=== PATIENT | female | born 1965 | race African-American/Black ===

== ENCOUNTER 2016-12-07 20:19 | Inpatient (IN) | payer MEDICARE, MEDICAID ==
[~2016-12-07] VITALS: Ht 162.6 cm; Wt 58.7 kg
[~2016-12-07 20:19] MED LIST: ALPR-341 PO; AMLO10TA4 PO; ASPI-1159 PO; CARV3.1242 PO; DILT240C92 PO; LEVO50TA8 PO; LORA1TAB PO; LOSA50TA20 PO; PANT40TA4 PO; PHEN100C4 PO; TRAM50TA3 PO
[2016-12-07] MEDS ORDERED: MORPHINE SULFATE 4 MG/ML CPJ (NOT FOR IM USE) IV STA (22:28)
[2016-12-07] MEDS ORDERED: SODIUM CHLORIDE 0.9% 1,000 ML IV ONE (22:28)
[2016-12-07] MEDS ORDERED: ONDANSETRON HCL 4MG/2ML VIAL IV STA (22:28)
[2016-12-07] MEDS ORDERED: HYDRALAZINE 20MG/ML VIAL IV ONE (22:45)
[2016-12-07 22:53] LABS: BASOPHILS % 1.5 % (0.0-2.0); EOSINOPHILS % 2.3 % (0.0-5.0); HEMATOCRIT. 25.3 % (36.0-48.0); HEMOGLOBIN. 8.4 g/dL (12.0-16.0); MEAN CORPUSCULAR HEMOGLOBIN 29.9 pg (28.0-32.0); MEAN CORPUSCULAR VOLUME 90.6 fL (81.0-99.0); MEAN PLATELET VOLUME 7.9 fl (7.4-10.4); MONOCYTES % 8.1 % (2.0-8.0); NEUTROPHILS % 57.1 % (40.0-76.0); PLATELET 168 x1000/uL (130-400); RED CELL DISTRIBUTION WIDTH 15.2 % (11.6-14.6)
[2016-12-07 22:59] LABS: CHLORIDE 99 mEq/L (98-107)
[2016-12-07 23:00] LABS: INR 1.3; PARTIAL THROMBOPLASTIN TIME 26.8 sec (24.0-34.0); PROTHROMBIN TIME 13.6 sec
[2016-12-07 23:02] LABS: CARBON DIOXIDE 23 mEq/L (21-32)
[2016-12-07 23:09] LABS: TROPONIN I 0.03 ng/mL (0.00-0.04)
[2016-12-07 23:10] LABS: HCG SCREEN NEGATIVE
[2016-12-07] MEDS ORDERED: SODIUM BICARBONATE 8.4% 1 MEQ/ML 50ML SYR IV ONE (23:30)
[2016-12-07] MEDS ORDERED: SODIUM POLYSTYRENE SULFONATE 15 G/60 ML BOT PO ONE (23:30)
[2016-12-07] MEDS ORDERED: SODIUM POLYSTYRENE SULFONATE 15 G/60 ML BOT PO NR (23:56)
[2016-12-08] MEDS ORDERED: METRONIDAZOLE 500 MG PREMIX 100 ML IV ONE (00:15)
[2016-12-08] MEDS ORDERED: LEVOFLOXACIN 500MG PREMIX 100 ML IV ONE (00:15)
[2016-12-08] MEDS ORDERED: IPRATROPIUM/ALBUTEROL 0.5-3(2.5)MG/3ML NEB INH PRN (00:45)
[2016-12-08] MEDS ORDERED: MAGNESIUM/ALUMINUM HYDROXIDE/SIMETHICONE 30ML UDC PO PRN (00:45)
[2016-12-08] MEDS ORDERED: CLONIDINE 0.1MG TABLET PO PRN (00:45)
[2016-12-08] MEDS: AMLODIPINE 10MG TABLET PO SCH ×2 (02:49→09:00)
[2016-12-08] MEDS: LORAZEPAM 0.5MG TABLET PO PRN ×2 (04:35→20:10)
[2016-12-08] MEDS: SODIUM CHLORIDE 0.9% INJ 3ML FLUSH IVF SCH ×3 (04:37→20:14)
[2016-12-08] MEDS: ACETAMINOPHEN 325MG TABLET PO PRN ×2 (04:38→22:38)
[2016-12-08] MEDS: ISOSORB DINIT/HYDRALAZINE HCL 20/37.5MG TABLET PO SCH ×3 (04:38→20:14)
[2016-12-08] MEDS: DIPHENHYDRAMINE 50MG/ML VIAL IV PRN ×3 (05:37→16:47)
[2016-12-08] MEDS: ONDANSETRON HCL 4MG/2ML VIAL IV PRN ×2 (05:37→22:38)
[2016-12-08] MEDS: LEVOTHYROXINE SODIUM 50MCG TABLET PO SCH (06:27)
[2016-12-08] MEDS: PHENYTOIN SODIUM EXTENDED 100MG CAPSULE PO SCH ×3 (06:27→20:14)
[2016-12-08] MEDS ORDERED: MORPHINE SULFATE 4 MG/ML CPJ (NOT FOR IM USE) IV PRN (08:15)
[2016-12-08] MEDS: CARVEDILOL 12.5MG TABLET PO SCH ×2 (08:59→20:10)
[2016-12-08] MEDS ORDERED: MORPHINE SULFATE 2 MG/ML CPJ (NOT FOR IM USE) IV PRN (15:00)
[2016-12-08] MEDS ORDERED: EPOETIN ALFA 10000UNITS/ML VIAL SUBCUT SCH (21:00)
[2016-12-08] MEDS ORDERED: FAMOTIDINE 20MG TABLET PO SCH (21:00)
[2016-12-08] MEDS ORDERED: TEMAZEPAM 15MG CAPSULE PO PRN (21:30)
[2016-12-09] MEDS: LORAZEPAM 0.5MG TABLET PO PRN (04:50)
[2016-12-09] MEDS: ACETAMINOPHEN 325MG TABLET PO PRN ×2 (04:50→09:09)
[2016-12-09] MEDS: PHENYTOIN SODIUM EXTENDED 100MG CAPSULE PO SCH ×2 (06:10→13:46)
[2016-12-09] MEDS: LEVOTHYROXINE SODIUM 50MCG TABLET PO SCH (06:13)
[2016-12-09] MEDS: SODIUM CHLORIDE 0.9% INJ 3ML FLUSH IVF SCH ×2 (06:17→13:46)
[2016-12-09] MEDS: DIPHENHYDRAMINE 50MG/ML VIAL IV PRN (06:18)
[2016-12-09] MEDS: ISOSORB DINIT/HYDRALAZINE HCL 20/37.5MG TABLET PO SCH ×2 (06:18→13:46)
[2016-12-09 06:49] LABS: BASOPHILS % 1.4 % (0.0-2.0); EOSINOPHILS % 2.6 % (0.0-5.0); HEMATOCRIT. 24.5 % (36.0-48.0); HEMOGLOBIN. 8.2 g/dL (12.0-16.0); LYMPHOCYTES % 20.7 % (20.0-50.0); MEAN CORPUSCULAR VOLUME 89.4 fL (81.0-99.0); MEAN PLATELET VOLUME 8.1 fl (7.4-10.4); MONOCYTES % 13.8 % (2.0-8.0); NEUTROPHILS % 61.5 % (40.0-76.0); PLATELET 157 x1000/uL (130-400); RED BLOOD CELL COUNT 2.74 mill/uL (4.2-5.4); RED CELL DISTRIBUTION WIDTH 14.8 % (11.6-14.6)
[2016-12-09] MEDS: CARVEDILOL 12.5MG TABLET PO SCH (08:57)
[2016-12-09] MEDS: AMLODIPINE 10MG TABLET PO SCH (08:57)
[2016-12-09 12:00] VITALS: BP 138/103
[2016-12-26] MEDS ORDERED: ZOLP10TA2 PO (11:52)
[2016-12-26] MEDS ORDERED: FURO40TA5 PO (11:52)
[2016-12-26] MEDS ORDERED: SEVE800T8 PO (11:52)
== END 2016-12-09 15:45 | disposition home or self-care (01) | DRG 291 ==
LOC: EDBD → ER 20:35 → 6WST 12-08 04:16 → ENRESERV 12-08 04:22 → 6WST 12-08 05:20 → UNDOADMIN 12-08 05:20 → 6WST 12-08 09:51
PROVIDERS: ADMIT Internal Medicine; ATTEND Internal Medicine
PROC: 5A1D00Z (ICD-10-PCS; principal; 2016-12-08)
DX: I13.2 Hypertensive heart and chronic kidney disease with heart failure and with stage 5 chronic kidney disease, or end stage renal disease (principal); N18.6 End stage renal disease; I50.23 Acute on chronic systolic (congestive) heart failure; K86.1 Other chronic pancreatitis; R18.8 Other ascites; E03.9 Hypothyroidism, unspecified; E87.5 Hyperkalemia; F41.1 Generalized anxiety disorder; E11.22 Type 2 diabetes mellitus with diabetic chronic kidney disease; K21.9 Gastro-esophageal reflux disease without esophagitis; F17.200 Nicotine dependence, unspecified, uncomplicated; Z79.82 Long term (current) use of aspirin; Z79.899 Other long term (current) drug therapy; Z99.2 Dependence on renal dialysis; Z91.15 Patient's noncompliance with renal dialysis
CPT/HCPCS: 36415; 71010; 74176; 80048; 80053; 80185; 83690; 84443; 84484; 84703; 85025; 85610; 85730; 93005; 96361; 96365; 96366; 96368; 96375; 99285; J0360; J0885; J1200; J1956; J2270; J2405; J3490; J7030

== ENCOUNTER 2016-12-20 20:24 | Inpatient (IN) | payer MEDICARE, MEDICAID ==
[~2016-12-20] VITALS: Ht 170.2 cm; Wt 56.7 kg
[2016-12-20] MEDS ORDERED: ONDANSETRON HCL 4MG/2ML VIAL IV STA (20:44)
[2016-12-20] MEDS ORDERED: MORPHINE SULFATE 4 MG/ML CPJ (NOT FOR IM USE) IV STA (20:44)
[2016-12-20] MEDS ORDERED: FAMOTIDINE 20MG/2ML VIAL IV STA (20:44)
[2016-12-20 21:22] LABS: EOSINOPHILS % 6.7 % (0.0-5.0); HEMATOCRIT. 24.3 % (36.0-48.0); HEMOGLOBIN. 8.2 g/dL (12.0-16.0); LYMPHOCYTES % 30.4 % (20.0-50.0); MEAN CORPUSCULAR HEMOGLOBIN 31.2 pg (28.0-32.0); MEAN CORPUSCULAR VOLUME 92.3 fL (81.0-99.0); MEAN PLATELET VOLUME 7.8 fl (7.4-10.4); MONOCYTES % 9.1 % (2.0-8.0); NEUTROPHILS % 51.8 % (40.0-76.0); PLATELET 170 x1000/uL (130-400); RED BLOOD CELL COUNT 2.63 mill/uL (4.2-5.4); RED CELL DISTRIBUTION WIDTH 16.7 % (11.6-14.6)
[2016-12-20 21:26] LABS: HCG SCREEN NEGATIVE
[2016-12-20 21:28] LABS: INR 1.2
[2016-12-20 21:36] LABS: CARBON DIOXIDE 23 mEq/L (21-32); CHLORIDE 100 mEq/L (98-107); ETHANOL BLOOD 113 mg/dL; TROPONIN I < 0.02 ng/mL (0.00-0.04)
[2016-12-20] MEDS ORDERED: LORAZEPAM 2MG/ML CPJ IV ONE (22:45)
[2016-12-21] MEDS ORDERED: FENTANYL CITRATE/PF 50MCG/ML 2ML VIAL IV ONE (01:00)
[2016-12-21] MEDS ORDERED: LABETALOL HCL 20MG/4ML CARPUJECT IV ONE (01:00)
[2016-12-21] MEDS ORDERED: ONDANSETRON HCL 4MG/2ML VIAL IV PRN (01:30)
[2016-12-21] MEDS ORDERED: MAGNESIUM/ALUMINUM HYDROXIDE/SIMETHICONE 30ML UDC PO PRN (01:30)
[2016-12-21] MEDS ORDERED: LABETALOL 5MG/ML SYR 20 MG/4 ML SYRINGE IV NR (02:00)
[2016-12-21 04:05] VITALS: BP 155/112
[2016-12-21] MEDS: DIPHENHYDRAMINE 50MG/ML VIAL IV PRN ×2 (04:48→23:03)
[2016-12-21] MEDS: SODIUM CHLORIDE 0.9% INJ 3ML FLUSH IVF SCH ×2 (04:48→21:12)
[2016-12-21] MEDS: LORAZEPAM 0.5MG TABLET PO PRN ×3 (04:48→21:13)
[2016-12-21] MEDS: PHENYTOIN SODIUM EXTENDED 100MG CAPSULE PO SCH ×3 (04:50→20:42)
[2016-12-21] MEDS: ISOSORB DINIT/HYDRALAZINE HCL 20/37.5MG TABLET PO SCH ×3 (04:51→20:42)
[2016-12-21] MEDS: LEVOTHYROXINE SODIUM 50MCG TABLET PO SCH (07:40)
[2016-12-21 08:00] VITALS: BP 157/112
[2016-12-21] MEDS: FOLIC ACID/VITAMIN B COMP W-C TABLET PO SCH (08:17)
[2016-12-21] MEDS: THIAMINE HCL 100MG TABLET PO SCH (08:18)
[2016-12-21] MEDS: LOSARTAN POTASSIUM 50 MG TABLET PO SCH (08:20)
[2016-12-21] MEDS: AMLODIPINE 10MG TABLET PO SCH (08:22)
[2016-12-21] MEDS: CARVEDILOL 12.5MG TABLET PO SCH ×2 (08:23→20:42)
[2016-12-21] MEDS: ACETAMINOPHEN 325MG TABLET PO PRN ×3 (09:35→21:37)
[2016-12-21 12:00] VITALS: BP 160/108
[2016-12-21] MEDS: CLONIDINE 0.1MG TABLET PO PRN ×2 (13:44→23:09)
[2016-12-21 16:00] VITALS: BP 138/93
[2016-12-21 20:00] VITALS: BP 166/113
[2016-12-21] MEDS ORDERED: FAMOTIDINE 20MG TABLET PO SCH (21:00)
[2016-12-22] VITALS: BP 137/88
[2016-12-22 04:00] VITALS: BP 136/91
[2016-12-22 06:12] LABS: HEMOGLOBIN. 8.2 g/dL (12.0-16.0); MEAN CORPUSCULAR HEMOGLOBIN 31.5 pg (28.0-32.0); MEAN CORPUSCULAR VOLUME 92.7 fL (81.0-99.0); MEAN PLATELET VOLUME 8.3 fl (7.4-10.4); PLATELET 149 x1000/uL (130-400); RED BLOOD CELL COUNT 2.59 mill/uL (4.2-5.4); RED CELL DISTRIBUTION WIDTH 17.1 % (11.6-14.6)
[2016-12-22 06:16] LABS: PHOSPHORUS 4.3 mg/dL (2.5-4.9)
[2016-12-22] MEDS: PHENYTOIN SODIUM EXTENDED 100MG CAPSULE PO SCH ×2 (06:19→14:22)
[2016-12-22] MEDS: ISOSORB DINIT/HYDRALAZINE HCL 20/37.5MG TABLET PO SCH ×2 (06:19→14:00)
[2016-12-22] MEDS: SODIUM CHLORIDE 0.9% INJ 3ML FLUSH IVF SCH ×2 (06:19→14:00)
[2016-12-22] MEDS: LEVOTHYROXINE SODIUM 50MCG TABLET PO SCH (07:56)
[2016-12-22 08:00] VITALS: BP 130/96
[2016-12-22] MEDS: AMLODIPINE 10MG TABLET PO SCH (09:00)
[2016-12-22] MEDS ORDERED: FOLIC ACID/VITAMIN B COMP W-C TABLET PO SCH (09:00)
[2016-12-22] MEDS: CARVEDILOL 12.5MG TABLET PO SCH (09:58)
[2016-12-22] MEDS: LOSARTAN POTASSIUM 50 MG TABLET PO SCH (09:58)
[2016-12-22] MEDS: FOLIC ACID/VITAMIN B COMP W-C TABLET PO SCH (09:58)
[2016-12-22] MEDS: THIAMINE HCL 100MG TABLET PO SCH (10:09)
[2016-12-22] MEDS: DIPHENHYDRAMINE 50MG/ML VIAL IV PRN (10:10)
[2016-12-22] MEDS: LORAZEPAM 0.5MG TABLET PO PRN (10:10)
[2016-12-22 12:00] VITALS: BP 103/67
[2016-12-22 12:25] LABS: NUCLEATED RED BLOOD CELLS 2 /100 WBC; PLATELET ESTIMATE NORMAL
[2016-12-22] MEDS ORDERED: LIDOCAINE HCL 1% 20ML VIAL (Pyxis) INJ ONE (14:00)
[2016-12-22] MEDS ORDERED: SODIUM BICARBONATE 4% (2.4MEQ) 5ML VIAL IV ONE (14:00)
[2016-12-22 15:09] VITALS: BP 109/82
[2016-12-22] MEDS ORDERED: EPOETIN ALFA 10000UNITS/ML VIAL SUBCUT SCH (21:00)
[2016-12-26] MEDS ORDERED: SEVE800T8 PO (11:52)
[2016-12-26] MEDS ORDERED: FURO40TA5 PO (11:52)
[2016-12-26] MEDS ORDERED: ZOLP10TA2 PO (11:52)
== END 2016-12-22 16:10 | disposition home or self-care (01) | DRG 432 ==
LOC: EDBD → ER 20:41 → ENRESERV 12-21 01:25 → 7WST 12-21 04:27
PROVIDERS: ADMIT Internal Medicine; ATTEND Internal Medicine
PROC: 5A1D00Z (ICD-10-PCS; 2016-12-21)
PROC: 0W9G3ZX Drainage of Peritoneal Cavity, Percutaneous Approach, Diagnostic (ICD-10-PCS; principal; 2016-12-22)
DX: K70.31 Alcoholic cirrhosis of liver with ascites (principal); E43 Unspecified severe protein-calorie malnutrition; I50.23 Acute on chronic systolic (congestive) heart failure; N18.6 End stage renal disease; I13.2 Hypertensive heart and chronic kidney disease with heart failure and with stage 5 chronic kidney disease, or end stage renal disease; Z68.1 Body mass index [BMI] 19.9 or less, adult; E87.2 Acidosis; K86.0 Alcohol-induced chronic pancreatitis; D63.8 Anemia in other chronic diseases classified elsewhere; D72.819 Decreased white blood cell count, unspecified; E03.9 Hypothyroidism, unspecified; F10.229 Alcohol dependence with intoxication, unspecified; F41.1 Generalized anxiety disorder; G40.909 Epilepsy, unspecified, not intractable, without status epilepticus; K21.9 Gastro-esophageal reflux disease without esophagitis; Z91.14 Patient's other noncompliance with medication regimen; Z91.018 Allergy to other foods; Z91.010 Allergy to peanuts; Z99.2 Dependence on renal dialysis; Z91.15 Patient's noncompliance with renal dialysis; I25.2 Old myocardial infarction; Z98.891 History of uterine scar from previous surgery
CPT/HCPCS: 36415; 49083; 71010; 74176; 80051; 80053; 83605; 83690; 83880; 84100; 84484; 84703; 85025; 85610; 93005; 96374; 96375; 99285; G0482; J0885; J1200; J2060; J2270; J2405; J3010; J3490; J7040

== ENCOUNTER 2017-08-03 14:40 | Inpatient (IN) | payer MEDICARE, MEDICAID ==
[~2017-08-03] VITALS: Ht 170.2 cm; Wt 62.1 kg
[~2017-08-03 14:40] MED LIST changes: +FURO40TA5 PO; -LOSA50TA20 PO; +SEVE800T8 PO; +ZOLP10TA2 PO
[2017-08-03] MEDS ORDERED: MORPHINE SULFATE 4 MG/ML CPJ (NOT FOR IM USE) IV STA (14:50)
[2017-08-03] MEDS ORDERED: ONDANSETRON HCL 4MG/2ML VIAL IV STA (14:50)
[2017-08-03] MEDS ORDERED: DIPHENHYDRAMINE 50MG/ML VIAL IV ONE ×2 (15:00→19:00)
[2017-08-03 15:57] LABS: BASOPHILS % 1.3 % (0.0-2.0); EOSINOPHILS % 4.8 % (0.0-5.0); HEMATOCRIT. 22.4 % (36.0-48.0); HEMOGLOBIN. 7.6 g/dL (12.0-16.0); LYMPHOCYTES % 15.7 % (20.0-50.0); MEAN CORPUSCULAR HEMOGLOBIN 33.1 pg (28.0-32.0); MEAN CORPUSCULAR VOLUME 98.2 fL (81.0-99.0); MONOCYTES % 10.5 % (2.0-8.0); NEUTROPHILS % 67.7 % (40.0-76.0); PLATELET 248 x1000/uL (130-400); RED BLOOD CELL COUNT 2.28 mill/uL (4.2-5.4); RED CELL DISTRIBUTION WIDTH 15.8 % (11.6-14.6)
[2017-08-03 16:01] LABS: CHLORIDE 95 mEq/L (98-107); INR 1.1; PARTIAL THROMBOPLASTIN TIME 26.4 sec (23.4-31.0); PROTHROMBIN TIME 11.5 sec (9.4-11.6)
[2017-08-03 16:10] LABS: CREATINE KINASE 40 IU/L (26-192); TROPONIN I < 0.02 ng/mL (0.00-0.04)
[2017-08-03] MEDS ORDERED: SODIUM BICARBONATE 4% (2.4MEQ) 5ML VIAL IV ONE (16:17)
[2017-08-03] MEDS ORDERED: LIDOCAINE HCL 1% 20ML VIAL (Pyxis) INJ ONE (16:19)
[2017-08-03] MEDS ORDERED: LORAZEPAM 2MG/ML CPJ IV ONE (18:15)
[2017-08-03] MEDS ORDERED: MORPHINE SULFATE 10 MG/ML CPJ IM ONE (19:00)
[2017-08-03 22:35] VITALS: BP 157/112
[2017-08-03 22:58] VITALS: BP 157/112
[2017-08-03] MEDS ORDERED: HEPARIN SODIUM 1,000 UNIT/1ML VIAL IV NR (23:45)
[2017-08-04] VITALS (12 sets, daily range): BP systolic 106–171; BP diastolic 69–101
[2017-08-04] MEDS: DIPHENHYDRAMINE 50MG/ML VIAL IV PRN ×4 (00:26→21:27)
[2017-08-04] MEDS: MORPHINE SULFATE 4 MG/ML CPJ (NOT FOR IM USE) IV PRN ×5 (00:35→20:21)
[2017-08-04] MEDS ORDERED: MEDICATION NOT ON FORMULARY EA (Alprazolam 1 MG) PO SCH (05:15)
[2017-08-04] MEDS ORDERED: ALPRAZOLAM 0.5 MG TABLET PO PRN (05:30)
[2017-08-04] MEDS ORDERED: ACETAMINOPHEN 325MG TABLET PO PRN (05:45)
[2017-08-04] MEDS: ASPIRIN 81MG EC TABLET PO SCH (09:00)
[2017-08-04] MEDS: SEVELAMER CARBONATE 800 MG TABLET PO SCH ×3 (09:19→19:02)
[2017-08-04] MEDS: AMLODIPINE 10MG TABLET PO SCH (09:19)
[2017-08-04] MEDS: LORAZEPAM 1MG TABLET PO SCH ×3 (09:20→19:02)
[2017-08-04] MEDS: CARVEDILOL 12.5MG TABLET PO SCH ×2 (09:20→21:27)
[2017-08-04] MEDS: PANTOPRAZOLE 40MG DR TABLET PO SCH (09:20)
[2017-08-04] MEDS: PHENYTOIN SODIUM EXTENDED 100MG CAPSULE PO SCH ×3 (09:20→19:02)
[2017-08-04] MEDS: LEVOTHYROXINE SODIUM 50MCG TABLET PO SCH (09:24)
[2017-08-04 09:55] LABS: HEMATOCRIT. 21.8 % (36.0-48.0); HEMOGLOBIN. 7.1 g/dL (12.0-16.0); MEAN CORPUSCULAR HEMOGLOBIN 32.2 pg (28.0-32.0); PLATELET 226 x1000/uL (130-400); RED BLOOD CELL COUNT 2.21 mill/uL (4.2-5.4)
[2017-08-04] MEDS ORDERED: CEFTRIAXONE 1 G PREMIX 50 ML IV SCH (10:00)
[2017-08-04] MEDS ORDERED: HYDROCODONE/ACETAMINOPHEN 5/325MG TABLET PO PRN (11:30)
[2017-08-04] MEDS ORDERED: INFLUENZA VIRUS VACCINE 0.5ML SYR IM ONE (12:00)
[2017-08-04] MEDS ORDERED: SODIUM CHLORIDE 0.9% IV NR (12:00)
[2017-08-04] MEDS ORDERED: GENTAMICIN SULFATE IV NR (12:00)
[2017-08-04 13:24] LABS: PLATELET ESTIMATE NORMAL
[2017-08-04 16:05] LABS: HEMATOCRIT 25.3 % (36.0-48.0); HEMOGLOBIN 8.4 g/dL (12.0-16.0); MEAN CORPUSCULAR HEMOGLOBIN 32.7 pg (28.0-32.0); MEAN CORPUSCULAR VOLUME 98.9 fL (81.0-99.0); PLATELET 236 x1000/uL (130-400); RED BLOOD CELL COUNT 2.56 mill/uL (4.2-5.4); RED CELL DISTRIBUTION WIDTH 16.4 % (11.6-14.6)
[2017-08-04] MEDS ORDERED: MEDICATION NOT ON FORMULARY EA (Zolpidem Tartrate (Ambien Pak) 10 MG) PO SCH (17:00)
[2017-08-04] MEDS ORDERED: ZOLPIDEM TARTRATE 5MG TABLET PO PRN (21:00)
[2017-08-05] VITALS: BP 139/94
[2017-08-05] MEDS: MORPHINE SULFATE 4 MG/ML CPJ (NOT FOR IM USE) IV PRN ×4 (00:44→13:29)
[2017-08-05] MEDS: DIPHENHYDRAMINE 50MG/ML VIAL IV PRN ×2 (03:24→09:34)
[2017-08-05 04:00] VITALS: BP 155/112
[2017-08-05] MEDS: LEVOTHYROXINE SODIUM 50MCG TABLET PO SCH (07:04)
[2017-08-05] MEDS: PANTOPRAZOLE 40MG DR TABLET PO SCH (07:10)
[2017-08-05 08:00] VITALS: BP 142/102
[2017-08-05] MEDS: SEVELAMER CARBONATE 800 MG TABLET PO SCH ×2 (08:29→12:50)
[2017-08-05] MEDS: AMLODIPINE 10MG TABLET PO SCH (08:29)
[2017-08-05] MEDS: CARVEDILOL 12.5MG TABLET PO SCH (08:30)
[2017-08-05] MEDS: PHENYTOIN SODIUM EXTENDED 100MG CAPSULE PO SCH ×2 (08:30→13:00)
[2017-08-05] MEDS: ASPIRIN 81MG EC TABLET PO SCH (08:34)
[2017-08-05] MEDS: LORAZEPAM 1MG TABLET PO SCH ×2 (09:10→13:00)
[2017-08-05 09:46] LABS: HEMATOCRIT. 25.3 % (36.0-48.0); HEMOGLOBIN. 8.3 g/dL (12.0-16.0); MEAN CORPUSCULAR HEMOGLOBIN 32.3 pg (28.0-32.0); MEAN CORPUSCULAR VOLUME 98.1 fL (81.0-99.0); MEAN PLATELET VOLUME 7.8 fl (7.4-10.4); PLATELET 270 x1000/uL (130-400); RED BLOOD CELL COUNT 2.58 mill/uL (4.2-5.4); RED CELL DISTRIBUTION WIDTH 16.4 % (11.6-14.6)
[2017-08-05 12:00] VITALS: BP 154/92
[2017-08-05 12:45] LABS: NUCLEATED RED BLOOD CELLS 1 /100 WBC; PLATELET ESTIMATE NORMAL
[2017-08-05 15:44] VITALS: BP 152/88
[2017-08-05 16:00] VITALS: BP 140/90
== END 2017-08-05 16:52 | disposition home or self-care (01) | DRG 291 ==
LOC: ER 14:59 → 6WST 17:03 → ENRESERV 20:05
PROVIDERS: ADMIT Internal Medicine; ATTEND Internal Medicine
PROC: 0W9G3ZZ Drainage of Peritoneal Cavity, Percutaneous Approach (ICD-10-PCS; principal; 2017-08-03)
PROC: 5A1D70Z Performance of Urinary Filtration, Intermittent, Less than 6 Hours Per Day (ICD-10-PCS; 2017-08-03)
PROC: 30233N1 Transfusion of Nonautologous Red Blood Cells into Peripheral Vein, Percutaneous Approach (ICD-10-PCS; 2017-08-04)
PROC: 5A1D70Z Performance of Urinary Filtration, Intermittent, Less than 6 Hours Per Day (ICD-10-PCS; 2017-08-05)
DX: I13.2 Hypertensive heart and chronic kidney disease with heart failure and with stage 5 chronic kidney disease, or end stage renal disease (principal); N18.6 End stage renal disease; R18.8 Other ascites; E44.0 Moderate protein-calorie malnutrition; I42.9 Cardiomyopathy, unspecified; K70.40 Alcoholic hepatic failure without coma; I50.23 Acute on chronic systolic (congestive) heart failure; E03.9 Hypothyroidism, unspecified; D64.9 Anemia, unspecified; F41.9 Anxiety disorder, unspecified; K21.9 Gastro-esophageal reflux disease without esophagitis; G40.909 Epilepsy, unspecified, not intractable, without status epilepticus; Z99.2 Dependence on renal dialysis; Z91.018 Allergy to other foods; Z91.010 Allergy to peanuts; Z79.899 Other long term (current) drug therapy; Z79.82 Long term (current) use of aspirin; Z68.21 Body mass index [BMI] 21.0-21.9, adult
CPT/HCPCS: 36415; 49083; 71045; 80048; 80053; 80170; 82550; 83036; 83605; 83690; 83880; 84443; 84484; 85025; 85027; 85610; 85730; 86850; 86900; 86920; 87040; 90686; 93005; 96372; 96374; 96375; 96376; 99285; J0696; J1200; J1580; J1644; J2060; J2270; J2405; J3490; J7030; J7050; P9016